=== PATIENT | female | born 1960 | race Caucasian/White ===

== ENCOUNTER 2016-06-05 19:39 | Emergency (ER) | payer OTHER, BC ==
[2016-06-05 19:53] VITALS: BP 149/81
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
[2016-06-05] MEDS ORDERED: HYDROCODONE/ACETAMINOPHEN 5-325 MG TABLET PO ONE (20:45)
[2016-06-05] MEDS ORDERED: IBUPROFEN 600 MG TABLET PO ONE (20:45)
== END 2016-06-05 21:06 | disposition home or self-care (01) ==
LOC: ER 19:39
DX: M54.5 Low back pain (principal); M54.2 Cervicalgia; E78.00 Pure hypercholesterolemia, unspecified; V89.2XXA Person injured in unspecified motor-vehicle accident, traffic, initial encounter; Z88.6 Allergy status to analgesic agent; Z88.0 Allergy status to penicillin; Z90.710 Acquired absence of both cervix and uterus
CPT/HCPCS: 72110; 99283

== ENCOUNTER 2016-10-05 04:54 | Emergency (ER) | payer BC, OTHER ==
--- NOTE | 2016-10-05 05:30 | ER Document Report ---
ED Hip Pain/Injury - General Chief Complaint: Hip Pain Stated Complaint: HIP PAIN Time Seen by Provider: 10/05/16 05:19 Mode of Arrival: Ambulatory Information source: Patient Notes: Pt is a 56 year old female who presents to the ER today for right hip pain that began 4 days ago suddenly. She denies injury, radiation down leg, numbness or tingling. She states the pain is sharp in nature and constant, worse with movement and laying on. TRAVEL OUTSIDE OF THE [place] IN LAST 30 DAYS: No - Related Data Allergies/Adverse Reactions: codeine [Codeine] Allergy (Intermediate, Verified 03/18/15 14:31) dizzy ampicillin [Ampicillin] Allergy (Unknown, Verified 03/18/15 14:31) rash morphine [Morphine] Allergy (Unknown, Verified 03/18/15 14:31) Hives Past Medical History - General Information source: Patient - Social History Smoking Status: Unknown if Ever Smoked Family History: Arthritis, CAD, CVA, DM, Hyperlipidemia, Hypertension, Malignancy Patient has suicidal ideation: No Patient has homicidal ideation: No - Past Medical History Cardiac Medical History: Reports: Hx Hypercholesterolemia Denies: Hx Coronary Artery Disease, Hx Heart Attack, Hx Hypertension Pulmonary Medical History: Reports: Hx Asthma - rare inhaler, Hx Bronchitis - yearly Denies: Hx COPD, Hx Pneumonia Neurological Medical History: Reports: Hx Migraine. Denies: Hx Cerebrovascular Accident, Hx Seizures Endocrine Medical History: Denies: Hx Diabetes Mellitus Type 1, Hx Diabetes Mellitus Type 2 Renal/ Medical History: Denies: Hx Peritoneal Dialysis GI Medical History: Reports: Hx Diverticulitis Musculoskeltal Medical History: Denies Hx Arthritis, Reports Hx Musculoskeletal Deformity, Reports Hx Musculoskeletal Trauma Traumatic Medical History: Reports: Hx Fractures Past Surgical History: Reports: Hx Abdominal Surgery - colon resection, Hx Adenoidectomy, Hx Hysterectomy, Hx Orthopedic Surgery - back surgery hand surgery, Hx Tonsillectomy, Hx Tubal Ligation - Immunizations Hx Diphtheria, Pertussis, Tetanus Vaccination: Yes Hx Pneumococcal Vaccination: 01/21/15 Review of Systems - Review of Systems Constitutional: No symptoms reported EENT: No symptoms reported Cardiovascular: No symptoms reported Respiratory: No symptoms reported Gastrointestinal: No symptoms reported Genitourinary: No symptoms reported Female Genitourinary: No symptoms reported Musculoskeletal: See HPI Skin: No symptoms reported Hematologic/Lymphatic: No symptoms reported Neurological/Psychological: No symptoms reported Physical Exam - Vital signs Vitals: Temp Pulse Resp BP Pulse Ox 97.6 F 79 18 133/74 H 95 10/05/16 04:56 10/05/16 04:56 10/05/16 04:56 10/05/16 04:56 10/05/16 04:56 - Notes Notes: PHYSICAL EXAMINATION: GENERAL: Obviously uncomfortable, laying on left side, but in no acute distress. HEAD: Atraumatic, normocephalic. EYES: Pupils equal round and reactive to light, extraocular movements intact, sclera anicteric, conjunctiva are normal. NECK: Normal range of motion, supple without lymphadenopathy LUNGS: CTAB and equal. No wheezes rales or rhonchi. HEART: Regular rate and rhythm without murmurs BACK: right SI joint tenderness, no vertebral tenderness, decreased ROM secondary to pain GI/: no CVA tenderness EXTREMITIES: Normal range of motion, no pitting edema. No cyanosis. NEUROLOGICAL: Cranial nerves grossly intact. Normal sensory/motor exams. PSYCH: Normal mood, normal affect. SKIN: Warm, Dry, normal turgor, no rashes or lesions noted Course - Re-evaluation Re-evalutation: 10/05/16 06:17 X-ray of the head negative for any acute pathology. - Vital Signs Vital signs: Temp Pulse Resp BP Pulse Ox 97.6 F 79 18 133/74 H 95 10/05/16 04:56 10/05/16 04:56 10/05/16 04:56 10/05/16 04:56 10/05/16 04:56 Discharge - Discharge Clinical Impression: Right hip pain Condition: Stable Disposition: HOME, SELF-CARE Additional Instructions: Return immediately for any new or worsening symptoms. Follow up with primary care provider, call tomorrow to make followup appointment. Prescriptions: Ketorolac Tromethamine [Toradol 10 mg Tablet] 10 mg PO Q6HP PRN #30 tablet PRN Reason: Cyclobenzaprine HCl [Flexeril 10 mg Tablet] 10 mg PO TIDP PRN #15 tab PRN Reason: Prednisone [Deltasone 20 mg Tablet] 3 tab PO DAILY 5 Days Forms: Return to Work Referrals: EVAN HERNANDEZ MD [Primary Care Provider] - Follow up as needed
[2016-10-05] MEDS ORDERED: CYCLOBENZAPRINE HCL 10 MG TABLET PO ONE (06:24)
[2016-10-05] MEDS ORDERED: PREDNISONE 20 MG TABLET PO ONE (06:24)
[2016-10-05] MEDS ORDERED: KETOROLAC TROMETHAMINE 60 MG/2 ML SDV IM ONE (06:24)
[2016-10-05 06:45] VITALS: BP 118/56
== END 2016-10-05 06:45 | disposition home or self-care (01) ==
LOC: ER 04:54
DX: M25.551 Pain in right hip (principal)
CPT/HCPCS: 99283; 73502; J1885; J7512

== ENCOUNTER → 2016-10-07 | Outpatient (CLI) | payer BC | LOC: RAD 10:12 | PROVIDERS: ATTEND Family Medicine | DX: M85.9 Disorder of bone density and structure, unspecified (principal); M16.0 Bilateral primary osteoarthritis of hip; M47.9 Spondylosis, unspecified | CPT/HCPCS: 82565; 72197; A9576 ==

== ENCOUNTER → 2016-11-29 | Outpatient (CLI) | payer BC ==
--- NOTE | 2016-11-29 15:34 | RADIOLOGY REPORT (SQ) ---
EXAM DESCRIPTION: CHEST PA/LAT COMPLETED DATE/TIME: 11/29/2016 3:20 pm REASON FOR STUDY: SHORTNESS OF BREATH, PAIN IN LEFT KNEE COMPARISON: 02/11/2015 EXAM PARAMETERS: NUMBER OF VIEWS: two views TECHNIQUE: Digital Frontal and Lateral radiographic views of the chest acquired. RADIATION DOSE: NA LIMITATIONS: none FINDINGS: LUNGS AND PLEURA: No opacities, masses or pneumothorax. No pleural effusion. MEDIASTINUM AND HILAR STRUCTURES: No masses or contour abnormalities. HEART AND VASCULAR STRUCTURES: Heart normal size. No evidence for failure. BONES: No acute findings. HARDWARE: None in the chest. OTHER: No other significant finding. IMPRESSION: NO SIGNIFICANT RADIOGRAPHIC FINDING IN THE CHEST. TECHNICAL DOCUMENTATION: JOB ID: [id number] [employer]- All Rights Reserved
--- NOTE | 2016-11-29 15:52 | RADIOLOGY REPORT (SQ) ---
EXAM DESCRIPTION: KNEE LEFT 4 VIEW COMPLETED DATE/TIME: 11/29/2016 3:20 pm REASON FOR STUDY: SHORTNESS OF BREATH, PAIN IN LEFT KNEE R06.02 SHORTNESS OF BREATH M25.562 PAIN I N LEFT KNEE COMPARISON: None. NUMBER OF VIEWS: Four views. TECHNIQUE: AP, lateral, and both oblique radiographic images acquired of the left knee. LIMITATIONS: None. FINDINGS: MINERALIZATION: Normal. BONES: No acute fracture or dislocation. No worrisome bone lesions. Medial compartment osteophytes. JOINT: No effusion. Medial compartment joint space narrowing. OTHER: No other significant finding. IMPRESSION: Medial compartment osteoarthritis. TECHNICAL DOCUMENTATION: JOB ID: [id number] [employer]- All Rights Reserved
== END ==
LOC: RAD 15:03
PROVIDERS: ATTEND Family Medicine
DX: R06.02 Shortness of breath (principal); M25.562 Pain in left knee; M17.12 Unilateral primary osteoarthritis, left knee
CPT/HCPCS: 71020

== ENCOUNTER → 2018-08-01 | Outpatient (CLI) | payer OTHER ==
--- NOTE | 2018-08-01 11:50 | RADIOLOGY REPORT (SQ) ---
EXAM DESCRIPTION: MRI LUMBAR SPINE WITHOUT COMPLETED DATE/TIME: 08/01/2018 11:27 am REASON FOR STUDY: LOW BACK PAIN (M54.5) M54.5 LOW BACK PAIN COMPARISON: Lumbar spine films 06/05/2016 TECHNIQUE: Sagittal and Axial imaging includes T1, T2, STIR and gradient echo sequences. Coronal T2/ HASTE imaging. LIMITATIONS: None. FINDINGS: VISUALIZED UPPER ABDOMEN: Limited evaluation. No acute or suspicious findings suggested. SEGMENTATION: No transitional anatomy. The lowest well-developed disc space is labeled L5-S1. ALIGNMENT: Grade 1 anterolisthesis of L3 over L4 is present related to bulky facet arthropathy VERTEBRAE: Intact. BONE MARROW: Fatty reactive vertebral body endplate changes from L3 through S1 DISC SIGNAL: Diffuse decreased T2 weighted intervertebral disc signal. Significant disc space loss o f height from L3-4 through L5-S1 POSTERIOR ELEMENTS: Generally intact. No pars defect evident. HARDWARE: None in the spine. CORD AND CONUS: Normal in size and signal intensity. Conus at the T12-L1 level. SOFT TISSUES: No aortic aneurysm seen. No bulky retroperitoneal adenopathy or mass. No paraspinal mas s or fluid. T11-12: No central or foraminal stenosis. Mild bilateral facet arthropathy T12-L1: Minimal posterior disc bulging, mild bilateral facet hypertrophy. No central stenosis or le ft foraminal narrowing. Mild right foraminal narrowing without exit T12 nerve root impingement. L1-L2: Mild diffuse posterior disc bulging right greater than left and moderate bilateral facet hyper trophy are present. No central stenosis. Mild inferior right foraminal narrowing. No left foramina l stenosis. L2-L3: A moderate-sized disc herniation is present superior migrated extruded fragment. This finding along with moderate bilateral facet and ligament hypertrophy causes high-grade central canal stenosi s, with effacement of the CSF around the lumbar nerve roots. This is best shown on axial T2 image 11 , and sagittal T2 image 8. Elsewhere at L2-3, there is moderate bilateral foraminal narrowing right greater than left without ex iting L2 nerve root impingement L3-L4: Mild grade 1 anterolisthesis of L3 over L4, bulky bilateral facet and ligament hypertrophy, br oad diffuse uncovered disc bulge with a small left paracentral protrusion causes moderate central can al stenosis with partial effacement of the CSF around the lumbar nerve roots, best shown on axial john ge 17 and sagittal image 9. Mild right, moderate left foraminal narrowing without exit L3 nerve root impingement L4-L5: Mild central canal stenosis with flattening of the thecal sac into a triangular shape results from broad diffuse posterior disc bulging and moderate bilateral facet and ligament hypertrophy. The re is mild bilateral foraminal narrowing without exiting L4 nerve root impingement L5-S1: Mild bilateral facet arthropathy, broad diffuse posterior disc bulging with an old calcified r ight paracentral disc protrusion. No significant central canal narrowing. Moderate right, mild left foraminal narrowing without exit L5 nerve root impingement SACRUM: Visualized upper sacrum intact. OTHER: No other significant findings. IMPRESSION: Significant central canal stenosis at L2-3 and L3-4 TECHNICAL DOCUMENTATION: JOB ID: [id number] [employer]- All Rights Reserved Reading location - IP/workstation name: [email or web address]
== END ==
LOC: RAD 10:19
PROVIDERS: ATTEND Family Medicine
DX: M54.5 Low back pain (principal); M48.061 Spinal stenosis, lumbar region without neurogenic claudication
CPT/HCPCS: 72148

== ENCOUNTER 2019-01-11 09:48 | Emergency (ER) | payer OTHER ==
[2019-01-11] MEDS ORDERED: IPRATROPIUM/ALBUTEROL 0.5-2.5 MG/3 ML AMPUL NEB ONE (10:06)
[2019-01-11] MEDS ORDERED: ALBUTEROL SULFATE 0.083% NEB 2.5 MG/3 ML AMPUL NEB ONE (10:06)
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
[2019-01-11 11:00] LABS: ABSOLUTE BASOPHILS # (AUTO) 0.1 10^3/uL (0.0-0.2); ABSOLUTE EOSINOPHILS # (AUTO) 0.1 10^3/uL (0.0-0.6); ABSOLUTE LYMPHOCYTES (AUTO) 1.8 10^3/uL (0.5-4.7); ABSOLUTE MONOCYTES (AUTO) 0.5 10^3/uL (0.1-1.4); ABSOLUTE NEUT (AUTO) 5.5 10^3/uL (1.7-8.2); BASOPHILS % (AUTO) 0.7 % (0-2); EOSINOPHILS % (AUTO) 1.2 % (0-6); HEMATOCRIT 40.4 % (36.0-47.0); HEMOGLOBIN 13.5 g/dL (12.0-15.5); LYMPHOCYTES % (AUTO) 22.6 % (13-45); MEAN CORPUSCULAR HEMOGLOBIN 27.8 pg (27.0-33.4); MEAN CORPUSCULAR HGB CONC 33.4 g/dL (32.0-36.0); MEAN CORPUSCULAR VOLUME 83 fl (80-97); MONOCYTES % (AUTO) 6.5 % (3-13); PLATELET COUNT 275 10^3/uL (150-450); RED BLOOD COUNT 4.85 10^6/uL (3.72-5.28); RED CELL DISTRIBUTION WIDTH 13.8 % (11.5-14.0); TOTAL CELLS COUNTED % (AUTO) 100 %
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
[2019-01-11 11:18] LABS: ALBUMIN 4.4 g/dL (3.5-5.0); ALKALINE PHOSPHATASE 97 U/L (38-126); ANION GAP 8 (5-19); ASPARTATE AMINO TRANSFERASE 26 U/L (14-36); BILIRUBIN,DIRECT 0.2 mg/dL (0.0-0.4); BILIRUBIN,TOTAL 0.3 mg/dL (0.2-1.3); BLOOD UREA NITROGEN 17 mg/dL (7-20); CALCIUM 10.6 mg/dL (8.4-10.2); CARBON DIOXIDE 30 mmol/L (22-30); CHLORIDE 101 mmol/L (98-107); GLUCOSE 143 mg/dL (75-110); POTASSIUM 4.6 mmol/L (3.6-5.0); TOTAL PROTEIN 7.2 g/dL (6.3-8.2)
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
--- NOTE | 2019-01-11 12:16 | RADIOLOGY REPORT (SQ) ---
EXAM DESCRIPTION: CT CHEST WITH COMPLETED DATE/TIME: 01/11/2019 12:04 pm REASON FOR STUDY: Difficulty breathing upper mid anterior chest/neck COMPARISON: None. TECHNIQUE: CT scan of the chest performed using helical scanning technique with dynamic intravenous contrast injection. Images reviewed with lung, soft tissue and bone windows. Reconstructed coronal and sagittal MPR and MIP images reviewed. All images stored on PACS. All CT scanners at this facility use dose modulation, iterative reconstruction, and/or weight based d osing when appropriate to reduce radiation dose to as low as reasonably achievable (ALARA). [facility]: Dose Right [facility]: CareDose [facility]: Dose Right [facility]: Teradose 4D [facility]: [place] CONTRAST TYPE AND DOSE: contrast/concentration: Isovue 350.00 mg/ml; Total Contrast Delivered: 80.0 ml; Total Saline Delivered: 55.0 ml RENAL FUNCTION: GFR > 60. RADIATION DOSE: CT Rad equipment meets quality standard of care and radiation dose reduction techniq ues were employed. CTDIvol: 9.2 mGy. DLP: 371 mGy-cm. . LIMITATIONS: None. FINDINGS: LUNGS AND PLEURA: No opacities, nodules, masses. No pneumothorax. No effusions. HILAR AND MEDIASTINAL STRUCTURES: No identified masses or abnormal nodes. HEART AND VASCULAR STRUCTURES: No aneurysm or dissection. No central pulmonary emboli. No pericardi al effusion. HARDWARE: None in the chest. UPPER ABDOMEN: No significant findings. Limited exam. THYROID AND OTHER SOFT TISSUES: No masses. No adenopathy. BONES: No significant finding. OTHER: No other significant finding. IMPRESSION: NORMAL CT OF THE CHEST WITH IV CONTRAST. TECHNICAL DOCUMENTATION: JOB ID: [id number] Quality ID # [id number]: Final reports with documentation of one or more dose reduction techniques (e.g., Au tomated exposure control, adjustment of the mA and/or kV according to patient size, use of iterative reconstruction technique) 2010 [employer]- All Rights Reserved Reading location - IP/workstation name: [email or web address]
[2019-01-11 14:06] VITALS: BP 136/79
== END 2019-01-11 14:09 | disposition home or self-care (01) ==
LOC: ER 09:48
DX: R06.00 Dyspnea, unspecified (principal); Z88.6 Allergy status to analgesic agent; Y99.0 Civilian activity done for income or pay; E78.00 Pure hypercholesterolemia, unspecified; Z90.710 Acquired absence of both cervix and uterus
CPT/HCPCS: 94640; 99285; 36415; 85025; 80053; 71046; 71260; J7620

== ENCOUNTER 2019-01-18 22:27 | Emergency (ER) | payer OTHER ==
--- NOTE | 2019-01-18 22:48 | ER Document Report ---
ED General - General Stated Complaint: TROUBLE BREATHING Time Seen by Provider: 01/18/19 22:47 Primary Care Provider: DEBBY CALVERT MD [Primary Care Provider] - Follow up as needed DEISY RODRIGUEZ MD [ACTIVE STAFF] - Follow up in 3-5 days (ENT ) Notes: Patient is a 58-year-old female with history of asthma that presents to the emergency department for chief complaint of cough and shortness of breath. 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 She states she has been trying inhalers, was seen in the ER twice since this occurrence, and has been on steroid courses, without much improvement of her symptoms. She states that her throat will feel tight at times, and she is been having a dry nonproductive cough and wheezing. She was given an albuterol and Atrovent breathing treatment by EMS, without much improvement of her symptoms. She denies any significant chest pain at this time, denies any fevers, chills, night sweats, nausea, vomiting or abdominal pain. Her main complaint is she feels like her throat closes at times. No new medications other than what is mentioned, no new allergen exposures. She states the sym ptoms have essentially been going on since December 25 as noted. Past Medical History: Asthma, hyperlipidemia Past Surgical History: Back surgery, colon surgery Social History: Denies tobacco, alcohol or drug use. Family History: Reviewed and noncontributory for presenting illness Allergies: Reviewed, see documented allergy list. REVIEW OF SYSTEMS: Other than noted above, the 12 point review of systems was reviewed with the patient and were negative, all pertinent findings are included in the HPI. PHYSICAL EXAMINATION: Vital signs reviewed, nursing noted reviewed. GENERAL: Patient has a dry cough on exam, but no acute respiratory distress HEAD: Atraumatic, normocephalic. EYES: Eyes appear normal, extraocular movements intact, sclera anicteric, conjunctiva are normal. ENT: nares patent, oropharynx clear without exudates. Moist mucous membranes. No stridor noted on exam. NECK: Normal range of motion, supple without lymphadenopathy LUNGS: Diffuse wheezing noted on exam, but no acute distress, no increased work of breathing. HEART: Heart rate mildly tachycardic, regular rhythm, no audible murmur. ABDOMEN: Soft, nontender, normoactive bowel sounds. No rebound, guarding, or rigidity. No masses appreciated. EXTREMITIES: Nontender, good range of motion, no pitting or edema. NEUROLOGICAL: No focal neurological deficits. Moves all extremities spontaneously Motor and sensory grossly intact on exam. PSYCH: Normal mood, normal affect. SKIN: Warm, Dry, normal turgor, no rashes or lesions noted on exposed skin TRAVEL OUTSIDE OF THE [place] IN LAST 30 DAYS: No - Related Data Allergies/Adverse Reactions: codeine [Codeine] Allergy (Intermediate, Verified 01/11/19 09:51) dizzy ampicillin [Ampicillin] Allergy (Unknown, Verified 01/11/19 09:51) rash morphine [Morphine] Allergy (Unknown, Verified 01/11/19 09:51) Hives Past Medical History - Social History Smoking Status: Never Smoker Family History: Arthritis, CAD, CVA, DM, Hyperlipidemia, Hypertension, Malignancy - Past Medical History Cardiac Medical History: Reports: Hx Hypercholesterolemia Denies: Hx Coronary Artery Disease, Hx Heart Attack, Hx Hypertension Pulmonary Medical History: Reports: Hx Asthma - rare inhaler, Hx Bronchitis - yearly Denies: Hx COPD, Hx Pneumonia Neurological Medical History: Reports: Hx Migraine. Denies: Hx Cerebrovascular Accident, Hx Seizures Endocrine Medical History: Denies: Hx Diabetes Mellitus Type 1, Hx Diabetes Mellitus Type 2 Renal/ Medical History: Denies: Hx Peritoneal Dialysis GI Medical History: Reports: Hx Diverticulitis Musculoskeletal Medical History: Denies Hx Arthritis, Reports Hx Musculoskeletal Deformity, Reports Hx Musculoskeletal Trauma Traumatic Medical History: Reports: Hx Fractures Past Surgical History: Reports: Hx Abdominal Surgery - colon resection, Hx Adenoidectomy, Hx Hysterectomy, Hx Orthopedic Surgery - back surgery hand surgery, Hx Tonsillectomy, Hx Tubal Ligation - Immunizations Hx Diphtheria, Pertussis, Tetanus Vaccination: Yes Hx Pneumococcal Vaccination: 01/21/15 Physical Exam - Vital signs Vitals: Temp Pulse Ox 98.0 F 98 01/18/19 22:27 01/18/19 22:27 Course - Re-evaluation Re-evalutation: Patient seen and examined vital signs reviewed. Laboratory data and/or imaging were ordered as appropriate for the patient's presenting symptoms and complaint, with consideration of any critical or life threatening conditions that may be associated with their obtained history and exam as noted above. Patient was treated with budesonide, IV magnesium, and racemic epinephrine and IV Decadron Results were reviewed when available and demonstrated negative chest x-ray, blood work was essentially unremarkable The patient was re-evaluated and was improved, no further wheezing noted on exam, no respiratory distress, no hypoxia Evaluation was most consistent with acute bronchospasm, patient may be having laryngospasm as well, giving her the sensation of feeling that her throat is closing, but her clinical exam did not have any stridor, she did not have any wheezing after treatment with bronchodilators by EMS, and with inhaled budesonide, and IV magnesium. Patient does not have any symptoms chronically fo r nearly a month now, I did advise her to follow-up with ENT, as well as pulmonology which she has an appointment with pulmonology coming up in a few weeks. Will prescribe her a prescription for Decadron, as a taper since she is been having multiple steroid courses recently patient was agreeable to trial this and see if it improves her symptoms. Results were discussed with the patient at this point, after careful consideration I feel that that patient can be discharged from the emergency department, the patient was educated treatments and reasons to return to the emergency department based on their presumed diagnosis as noted above, they were advised to followup with a primary care physician in 2-3 days. Patient was agreeable to plan of care. *Note is created using voice recognition software and may contain spelling, syntax or grammatical errors. Laboratory 01/18/19 01/18/19 01/18/19 22:40 22:40 22:40 WBC 10.4 RBC 4.60 Hgb 12.9 Hct 38.4 MCV 84 MCH 28.0 MCHC 33.5 RDW 14.0 Plt Count 285 Lymph % (Auto) 44.7 Gila % (Auto) 9.9 Eos % (Auto) 1.9 Baso % (Auto) 0.4 Absolute Neuts (auto) 4.5 Absolute Lymphs (auto) 4.7 Absolute Monos (auto) 1.0 Absolute Eos (auto) 0.2 Absolute Basos (auto) 0.0 Seg Neutrophils % 43.1 Sodium 137.4 Potassium 3.6 Chloride 102 Carbon Dioxide 27 Anion Gap 8 BUN 17 Creatinine 0.79 Est GFR ( Amer) > 60 Est GFR (MDRD) Non-Af > 60 Glucose 207 H Calcium 9.5 Total Bilirubin 0.3 Direct Bilirubin 0.1 Neonat Total Bilirubin Not Reportable Neonat Direct Bilirubin Not Reportable Neonat Indirect Bili Not Reportable AST 22 ALT 24 Alkaline Phosphatase 104 Creatine Kinase 81 CK-MB (CK-2) 0.85 Troponin I < 0.012 NT-Pro-B Natriuret Pep 16 Total Protein 6.9 Albumin 4.1 Chest X-Ray 01/18/19 22:35 IMPRESSION: No acute disease. copyright 2010 [employer]- All Rights Reserved - Vital Signs Vital signs: Temp Pulse Resp BP Pulse Ox 98.2 F 16 122/79 96 01/19/19 01:06 01/19/19 01:01 01/19/19 01:00 01/19/19 01:01 - Laboratory Result Diagrams: 01/18/19 22:40 01/18/19 22:40 Laboratory results interpreted by me: 01/18/19 22:40 Glucose 207 H - EKG Interpretation by Me Additional EKG results interpreted by me: EKG demonstrates sinus tachycardia with a ventricular rate of 103 bpm, normal axis, normal intervals, no evidence of acute ischemia in this EKG, compared to prior EKG from 12/25/2018, without significant change. Discharge - Discharge Clinical Impression: Bronchospasm, acute Condition: Stable Disposition: HOME, SELF-CARE Instructions: Bronchospasm (OM) Additional Instructions: Please take the prescribed Decadron as directed, continue using your albuterol inhaler, 2 puffs at least 3 times daily, and the Pulmicort inhaler, 2 puffs twice daily, and follow-up with ear nose and throat, as well as pulmonology. Call for an appointment. If your symptoms are worsening or not improving, do not hesitate to return to the emergency department to be reevaluated. Prescriptions: Dexamethasone [Decadron 4 Mg Tablet] 4 mg PO ASDIR #30 tablet Forms: Return to Work Referrals: DEBBY CALVERT MD [Primary Care Provider] - Follow up as needed DEISY RODRIGUEZ MD [ACTIVE STAFF] - Follow up in 3-5 days (ENT )
[2019-01-18 22:59] LABS: ABSOLUTE EOSINOPHILS # (AUTO) 0.2 10^3/uL (0.0-0.6); ABSOLUTE LYMPHOCYTES (AUTO) 4.7 10^3/uL (0.5-4.7); ABSOLUTE NEUT (AUTO) 4.5 10^3/uL (1.7-8.2); BASOPHILS % (AUTO) 0.4 % (0-2); EOSINOPHILS % (AUTO) 1.9 % (0-6); HEMATOCRIT 38.4 % (36.0-47.0); HEMOGLOBIN 12.9 g/dL (12.0-15.5); LYMPHOCYTES % (AUTO) 44.7 % (13-45); MEAN CORPUSCULAR HGB CONC 33.5 g/dL (32.0-36.0); MEAN CORPUSCULAR VOLUME 84 fl (80-97); MONOCYTES % (AUTO) 9.9 % (3-13); PLATELET COUNT 285 10^3/uL (150-450); SEGMENTED NEUTROPHILS % (AUTO) 43.1 % (42-78); TOTAL CELLS COUNTED % (AUTO) 100 %; WHITE BLOOD COUNT 10.4 10^3/uL (4.0-10.5)
[2019-01-18] MEDS ORDERED: BUDESONIDE NEB 0.5 MG/2 ML AMPUL NEB ONE (23:04)
[2019-01-18] MEDS ORDERED: DEXAMETHASONE SOD PHOS INJ 10 MG/1 ML VIAL IV ONE (23:04)
[2019-01-18] MEDS ORDERED: RACEPINEPHRINE HCL 2.25% NEB 0.5 ML AMPUL NEB ONE (23:05)
[2019-01-18] MEDS ORDERED: MAGNESIUM SULFATE/D5W 1 GM/100 ML RTUPB IV ONE (23:06)
[2019-01-18 23:16] LABS: ALBUMIN 4.1 g/dL (3.5-5.0); ALKALINE PHOSPHATASE 104 U/L (38-126); ANION GAP 8 (5-19); ASPARTATE AMINO TRANSFERASE 22 U/L (14-36); BILIRUBIN,DIRECT 0.1 mg/dL (0.0-0.4); BILIRUBIN,TOTAL 0.3 mg/dL (0.2-1.3); BLOOD UREA NITROGEN 17 mg/dL (7-20); CALCIUM 9.5 mg/dL (8.4-10.2); CARBON DIOXIDE 27 mmol/L (22-30); CHLORIDE 102 mmol/L (98-107); CREATINE KINASE 81 U/L (30-135); GLUCOSE 207 mg/dL (75-110); POTASSIUM 3.6 mmol/L (3.6-5.0); TOTAL PROTEIN 6.9 g/dL (6.3-8.2)
--- NOTE | 2019-01-18 23:31 | RADIOLOGY REPORT (SQ) ---
EXAM DESCRIPTION: XR CHEST 1 VIEW COMPLETED DATE/TME: 01/18/2019 22:35 CLINICAL HISTORY: 58 years, Female, respiratory distress COMPARISON: Multiple priors, most recent from 01/11/2019 NUMBER OF VIEWS: One TECHNIQUE: Single frontal view of the chest was obtained portably. LIMITATIONS: None. FINDINGS: Cardiac and mediastinal contours are normal in appearance. Lungs are clear. No pleural effusion or pneumothorax. IMPRESSION: No acute disease. copyright 2010 [employer]- All Rights Reserved
--- NOTE | 2019-01-18 23:35 | EKG REPORT ---
SEVERITY:- BORDERLINE ECG - SINUS TACHYCARDIA NONSPECIFIC INFERIOR ST-T CHANGES : Confirmed by: Bony Rincon MD 18-Jan-2019 23:34:57
[2019-01-18 23:37] LABS: CREATINE KINASE MB 0.85 ng/mL (<4.55); NT PRO BNP 16 pg/mL (5-900)
[2019-01-18 23:42] LABS: TROPONIN I < 0.012 ng/mL
[2019-01-19 01:38] VITALS: BP 122/79
== END 2019-01-19 01:10 | disposition home or self-care (01) ==
LOC: ER 22:27
DX: J98.01 Acute bronchospasm (principal); R06.00 Dyspnea, unspecified; R05 Cough; X08.8XXA Exposure to other specified smoke, fire and flames, initial encounter; Y99.0 Civilian activity done for income or pay; E78.00 Pure hypercholesterolemia, unspecified; Z88.6 Allergy status to analgesic agent; Z88.0 Allergy status to penicillin; Z90.710 Acquired absence of both cervix and uterus
CPT/HCPCS: 93005; 94640; 99285; 96375; 96365; 36415; 82553; 82550; 85025; 80053; 84484; 83880; 71045; 93010; J3475; J1100; J3490

== ENCOUNTER 2019-05-16 17:48 | Emergency (ER) | payer OTHER ==
[2019-05-16] MEDS ORDERED: METHYLPREDNISOLONE INJ 125 MG/2 ML SDV IV ONE (18:04)
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
[2019-05-16 18:35] LABS: ABSOLUTE EOSINOPHILS # (AUTO) 0.1 10^3/uL (0.0-0.6); ABSOLUTE LYMPHOCYTES (AUTO) 2.7 10^3/uL (0.5-4.7); ABSOLUTE MONOCYTES (AUTO) 0.6 10^3/uL (0.1-1.4); ABSOLUTE NEUT (AUTO) 3.7 10^3/uL (1.7-8.2); BASOPHILS % (AUTO) 0.6 % (0-2); EOSINOPHILS % (AUTO) 1.1 % (0-6); HEMATOCRIT 39.3 % (36.0-47.0); HEMOGLOBIN 13.4 g/dL (12.0-15.5); MEAN CORPUSCULAR HEMOGLOBIN 27.8 pg (27.0-33.4); MEAN CORPUSCULAR HGB CONC 34.1 g/dL (32.0-36.0); MEAN CORPUSCULAR VOLUME 82 fl (80-97); MONOCYTES % (AUTO) 8.1 % (3-13); PLATELET COUNT 293 10^3/uL (150-450); RED BLOOD COUNT 4.81 10^6/uL (3.72-5.28); RED CELL DISTRIBUTION WIDTH 14.2 % (11.5-14.0); SEGMENTED NEUTROPHILS % (AUTO) 52.2 % (42-78); TOTAL CELLS COUNTED % (AUTO) 100 %
[2019-05-16 18:47] LABS: ALBUMIN 4.2 g/dL (3.5-5.0); ALKALINE PHOSPHATASE 97 U/L (38-126); ANION GAP 13 (5-19); ASPARTATE AMINO TRANSFERASE 43 U/L (14-36); BILIRUBIN,DIRECT 0.1 mg/dL (0.0-0.4); BILIRUBIN,TOTAL 0.4 mg/dL (0.2-1.3); BLOOD UREA NITROGEN 19 mg/dL (7-20); CALCIUM 9.9 mg/dL (8.4-10.2); CARBON DIOXIDE 27 mmol/L (22-30); CHLORIDE 101 mmol/L (98-107); GLUCOSE 171 mg/dL (75-110); POTASSIUM 3.9 mmol/L (3.6-5.0); TOTAL PROTEIN 7.3 g/dL (6.3-8.2)
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
--- NOTE | 2019-05-16 19:32 | RADIOLOGY REPORT (SQ) ---
EXAM DESCRIPTION: CT CHEST WITHOUT COMPLETED DATE/TIME: 05/16/2019 7:17 pm REASON FOR STUDY: cough, feels like throat swelling COMPARISON: None. TECHNIQUE: CT scan performed of the chest without intravenous contrast. Images reviewed with lung, soft tissue and bone windows. Reconstructed coronal and sagittal MPR images reviewed. All images st ored on PACS. All CT scanners at this facility use dose modulation, iterative reconstruction, and/or weight based d osing when appropriate to reduce radiation dose to as low as reasonably achievable (ALARA). [facility]: Dose Right [facility]: CareDose [facility]: Dose Right [facility]: Teradose 4D [facility]: Smart Extole RADIATION DOSE: CT Rad equipment meets quality standard of care and radiation dose reduction techniq ues were employed. CTDIvol: 14.4 mGy. DLP: 585 mGy-cm. mGy. LIMITATIONS: No technical limitations. FINDINGS: LUNGS AND PLEURA: No masses, infiltrates, or pneumothorax. No pleural effusions or pleura l calcifications. HILAR AND MEDIASTINAL STRUCTURES: No identified masses or abnormal nodes. No obvious aneurysm. HEART AND VASCULAR STRUCTURES: No aneurysm. No pericardial effusion. UPPER ABDOMEN: Possible hepatomegaly. Hepatic hypoattenuation. THYROID AND OTHER SOFT TISSUES: No masses. No adenopathy. BONES: No significant finding. HARDWARE: None in the chest. OTHER: No other significant findings. IMPRESSION: 1. No acute findings in the thorax. 2. Possible hepatomegaly. Hepatic steatosis. TECHNICAL DOCUMENTATION: JOB ID: [id number] Quality ID # [id number]: Final reports with documentation of one or more dose reduction techniques (e.g., Au tomated exposure control, adjustment of the mA and/or kV according to patient size, use of iterative reconstruction technique) 2010 [employer]- All Rights Reserved Reading location - IP/workstation name: [email or web address]
--- NOTE | 2019-05-16 19:36 | RADIOLOGY REPORT (SQ) ---
EXAM DESCRIPTION: CT SOFT TISSUE NECK WITH COMPLETED DATE/TIME: 05/16/2019 7:17 pm REASON FOR STUDY: cough, feels like throat swelling COMPARISON: None. TECHNIQUE: Post IV contrasted scanning from skull base through lung apices with review of bone, soft tissue and lung windows. Reconstructed coronal and sagittal MPR images reviewed. All images stored on PACS. All CT scanners at this facility use dose modulation, iterative reconstruction, and/or weight based d osing when appropriate to reduce radiation dose to as low as reasonably achievable (ALARA). [facility]: Dose Right [facility]: CareDose [facility]: Dose Right [facility]: Teradose 4D [facility]: [employer] CONTRAST TYPE AND DOSE: contrast/concentration: Isovue 350.00 mg/ml; Total Contrast Delivered: 75.0 ml; Total Saline Delivered: 53.0 ml RENAL FUNCTION: BUN 19 creatinine 0.69 RADIATION DOSE: CT Rad equipment meets quality standard of care and radiation dose reduction techniq ues were employed. CTDIvol: 16.2 mGy. DLP: 540 mGy-cm. . LIMITATIONS: None. FINDINGS: SKULL BASE: Intact. MAJOR SALIVARY GLANDS: No solid or cystic masses. No inflammatory changes. LYMPHADENOPATHY: No true adenopathy. There are numerous small nonspecific cervical nodes. MUCOSAL MASSES OR ASYMMETRY: No mucosal masses or asymmetry. LARYNX/CORDS: No abnormal findings. VASCULAR STRUCTURES: The major vessels are patent. LUNG APICES: Clear. BONES: Intact. Prior ACDF from C4 to C7. THYROID: Normal size. No masses. PARANASAL SINUSES: Clear. OTHER: No other significant finding. IMPRESSION: No acute abnormality in the neck. Findings as described. TECHNICAL DOCUMENTATION: JOB ID: [id number] Quality ID # [id number]: Final reports with documentation of one or more dose reduction techniques (e.g., Au tomated exposure control, adjustment of the mA and/or kV according to patient size, use of iterative reconstruction technique) 2010 [employer]- All Rights Reserved Reading location - IP/workstation name: [email or web address]
[2019-05-16] MEDS ORDERED: RINGERS SOLUTION,LACTATED 1,000 ML IV ONE (20:28)
[2019-05-16] MEDS: IPRATROPIUM/ALBUTEROL 0.5-2.5 MG/3 ML AMPUL NEB PRN ×3 (20:49→21:36)
[2019-05-16] MEDS: MAGNESIUM SULFATE/D5W 1 GM/100 ML RTUPB IV SCH ×2 (20:49→21:00)
[2019-05-17 01:14] VITALS: BP 108/65
== END 2019-05-17 02:04 | disposition home or self-care (01) ==
LOC: ER 17:48
DX: R49.0 Dysphonia (principal); J45.909 Unspecified asthma, uncomplicated; R05 Cough; Z79.899 Other long term (current) drug therapy; Z88.6 Allergy status to analgesic agent; Z88.5 Allergy status to narcotic agent; Z88.0 Allergy status to penicillin
CPT/HCPCS: 94640 ×2; 99285; 96361; 96375; 96365; 36415; 85025; 80053; 70491; 71250; J2930; J3475; J7120; J7620

== ENCOUNTER 2019-08-19 16:29 | Emergency (ER) | payer OTHER ==
--- NOTE | 2019-08-19 16:41 | ER Document Report ---
ED Medical Screen (RME) - General Chief Complaint: Syncope Stated Complaint: POSSIBLE SYNCOPE Time Seen by Provider: 08/19/19 16:35 Primary Care Provider: DEBBY CALVERT MD [Primary Care Provider] - Follow up as needed TRAVEL OUTSIDE OF THE [place] IN LAST 30 DAYS: Yes - HPI Notes: 08/19/19 16:40 59-year-old female presents emergency room for evaluation of a syncopal event approximately 1 hour ago. Patient was sitting on the toilet trying to have a bowel movement when she started to feel hot all over and then she does not remember anything. When she came to she says she was soaked in sweat she states that there is a hole in the wall she is not sure if that is from her elbow or from her head. Patient denies being a diabetic no history of CVA or MIs she states this happened once before prior to needing to have a colectomy in 2009. Patient was brought by private vehicle to ER I have greeted and performed a rapid initial assessment of this patient. A comprehensive ED assessment and evaluation of the patient, analysis of test results and completion of the medical decision making process will be conducted by additional ED providers. PHYSICAL EXAMINATION: GENERAL: Well-appearing, well-nourished and in no acute distress. HEAD: Atraumatic, normocephalic. No evidence of any trauma or ecchymosis EYES: Pupils equal round extraocular movements intact, conjunctiva are normal. NECK: Normal range of motion CV: s1, s2 regular LUNGS: No respiratory distress - Related Data Allergies/Adverse Reactions: codeine [Codeine] Allergy (Intermediate, Verified 08/19/19 16:34) dizzy ampicillin [Ampicillin] Allergy (Unknown, Verified 08/19/19 16:34) rash morphine [Morphine] Allergy (Unknown, Verified 08/19/19 16:34) Hives Past Medical History - Past Medical History Cardiac Medical History: Reports: Hx Hypercholesterolemia Denies: Hx Coronary Artery Disease, Hx Heart Attack, Hx Hypertension Pulmonary Medical History: Reports: Hx Asthma - rare inhaler, Hx Bronchitis - yearly Denies: Hx COPD, Hx Pneumonia Neurological Medical History: Reports: Hx Migraine. Denies: Hx Cerebrovascular Accident, Hx Seizures Endocrine Medical History: Denies: Hx Diabetes Mellitus Type 1, Hx Diabetes Mellitus Type 2 Renal/ Medical History: Denies: Hx Peritoneal Dialysis GI Medical History: Reports: Hx Diverticulitis Musculoskeltal Medical History: Denies Hx Arthritis, Reports Hx Musculoskeletal Deformity, Reports Hx Musculoskeletal Trauma Traumatic Medical History: Reports: Hx Fractures Past Surgical History: Reports: Hx Abdominal Surgery - colon resection, Hx Adenoidectomy, Hx Hysterectomy, Hx Orthopedic Surgery - back surgery hand surgery, Hx Tonsillectomy, Hx Tubal Ligation - Immunizations Hx Diphtheria, Pertussis, Tetanus Vaccination: Yes Physical Exam - Vital signs Vitals: Temp Pulse Resp BP Pulse Ox 98.9 F 99 16 143/74 H 93 08/19/19 16:33 08/19/19 16:33 08/19/19 16:33 08/19/19 16:33 08/19/19 16:33 Course - Vital Signs Vital signs: Temp Pulse Resp BP Pulse Ox 98.9 F 99 16 143/74 H 93 08/19/19 16:33 08/19/19 16:33 08/19/19 16:33 08/19/19 16:33 08/19/19 16:33 Doctor's Discharge - Discharge Referrals: DEBBY CALVERT MD [Primary Care Provider] - Follow up as needed
[2019-08-19 17:54] LABS: ABSOLUTE EOSINOPHILS # (AUTO) 0.1 10^3/uL (0.0-0.6); ABSOLUTE MONOCYTES (AUTO) 0.6 10^3/uL (0.1-1.4); ABSOLUTE NEUT (AUTO) 4.3 10^3/uL (1.7-8.2); BASOPHILS % (AUTO) 0.5 % (0-2); EOSINOPHILS % (AUTO) 1.2 % (0-6); HEMATOCRIT 28.1 % (36.0-47.0); HEMOGLOBIN 9.5 g/dL (12.0-15.5); MEAN CORPUSCULAR HEMOGLOBIN 27.6 pg (27.0-33.4); MEAN CORPUSCULAR HGB CONC 33.9 g/dL (32.0-36.0); MEAN CORPUSCULAR VOLUME 82 fl (80-97); PLATELET COUNT 319 10^3/uL (150-450); RED BLOOD COUNT 3.45 10^6/uL (3.72-5.28); RED CELL DISTRIBUTION WIDTH 15.7 % (11.5-14.0); SEGMENTED NEUTROPHILS % (AUTO) 61.3 % (42-78); TOTAL CELLS COUNTED % (AUTO) 100 %
[2019-08-19 18:10] LABS: ALBUMIN 3.8 g/dL (3.5-5.0); ALKALINE PHOSPHATASE 90 U/L (38-126); ANION GAP 5 (5-19); ASPARTATE AMINO TRANSFERASE 42 U/L (14-36); BILIRUBIN,DIRECT 0.2 mg/dL (0.0-0.4); BILIRUBIN,TOTAL 0.3 mg/dL (0.2-1.3); BLOOD UREA NITROGEN 14 mg/dL (7-20); CALCIUM 9.9 mg/dL (8.4-10.2); CARBON DIOXIDE 29 mmol/L (22-30); CHLORIDE 104 mmol/L (98-107); CREATINE KINASE 60 U/L (30-135); GLUCOSE 135 mg/dL (75-110); POTASSIUM 4.2 mmol/L (3.6-5.0)
--- NOTE | 2019-08-19 18:10 | ER Document Report ---
ED General - General Chief Complaint: Near Syncope Stated Complaint: POSSIBLE SYNCOPE Time Seen by Provider: 08/19/19 16:35 Primary Care Provider: DEBBY CALVERT MD [Primary Care Provider] - Follow up as needed TRAVEL OUTSIDE OF THE [place] IN LAST 30 DAYS: Yes - HPI Notes: Patient is a 59-year-old female who presents to the emergency department for evaluation after a syncopal episode patient she went to the bathroom to have a bowel movement. She states she started getting significant cramping down in her lower abdomen. After that she started having a heat sensation more left upper, got sweaty, and then passed out. She states there is a hole in the wall, she is unsure as to whether or not this was with her head or with her elbow. The patient denies any pain at this time. She has no additional complaints or concerns. She has had no recent medication changes. - Related Data Allergies/Adverse Reactions: codeine [Codeine] Allergy (Intermediate, Verified 08/19/19 17:27) dizzy ampicillin [Ampicillin] Allergy (Unknown, Verified 08/19/19 17:27) rash morphine [Morphine] Allergy (Unknown, Verified 08/19/19 17:27) Hives Home Medications: List reviewed with patient, please see chart Past Medical History - General Information source: Patient - Okay 19 exam time - Social History Smoking Status: Never Smoker Chew tobacco use (# tins/day): No Frequency of alcohol use: None Drug Abuse: None Family History: Arthritis, CAD, CVA, DM, Hyperlipidemia, Hypertension, Malignancy Patient has suicidal ideation: No Patient has homicidal ideation: No - Past Medical History Cardiac Medical History: Reports: Hx Hypercholesterolemia Denies: Hx Coronary Artery Disease, Hx Heart Attack, Hx Hypertension Pulmonary Medical History: Reports: Hx Asthma - rare inhaler, Hx Bronchitis - yearly Denies: Hx COPD, Hx Pneumonia Neurological Medical History: Reports: Hx Migraine. Denies: Hx Cerebrovascular Accident, Hx Seizures Endocrine Medical History: Denies: Hx Diabetes Mellitus Type 1, Hx Diabetes Mellitus Type 2 Renal/ Medical History: Denies: Hx Peritoneal Dialysis GI Medical History: Reports: Hx Diverticulitis Musculoskeletal Medical History: Denies Hx Arthritis, Reports Hx Musculoskeletal Deformity, Reports Hx Musculoskeletal Trauma Traumatic Medical History: Reports: Hx Fractures Past Surgical History: Reports: Hx Abdominal Surgery - colon resection, Hx Adenoidectomy, Hx Hysterectomy, Hx Orthopedic Surgery - back surgery hand surgery, Hx Tonsillectomy, Hx Tubal Ligation - Immunizations Hx Diphtheria, Pertussis, Tetanus Vaccination: Yes Hx Pneumococcal Vaccination: 01/21/15 Review of Systems - Review of Systems Cardiovascular: See HPI Gastrointestinal: See HPI -: Yes All other systems reviewed and negative - Rhonchi Physical Exam - Vital signs Vitals: Temp Pulse Resp BP Pulse Ox 98.9 F 99 16 143/74 H 93 08/19/19 16:33 08/19/19 16:33 08/19/19 16:33 08/19/19 16:33 08/19/19 16:33 - Notes Notes: Vital signs reviewed, please refer to chart. Head is normocephalic, atraumatic. Pupils equal round, reactive to light. Neck is supple without meningismus. Heart is regular rate and rhythm. Lungs are clear to auscultation bilaterally. Abdomen is soft, nontender, normoactive bowel sounds throughout. Extremities without cyanosis, clubbing. Posterior calves are nontender. Peripheral pulses are equal. Skin is warm and dry. Patient is awake, alert, oriented x3. Cranial nerves II - XII are grossly intact without focal neurological deficits. Strength is plus 5 out of 5 bilateral upper and lower extremities. Sensation is intact. Reflexes symmetrical. Intact [id number], rapid alternating movements, [id number]. Course - Re-evaluation Re-evalutation: 08/19/19 19:26 Patient presents to the emergency department for evaluation. Her findings are most consistent with vasovagal syncope. She has a normal neurological exam. Laboratory investigations are unremarkable. She is not orthostatic. Patient is feeling stable and has no complaints at this time. I will send her home with close follow-up. She is to return to the ER with worsening or new concerning symptoms of any sort. - Vital Signs Vital signs: Temp Pulse Resp BP Pulse Ox 98.9 F 74 15 132/77 H 97 08/19/19 18:19 08/19/19 18:26 08/19/19 18:19 08/19/19 18:26 08/19/19 18:19 - Laboratory Result Diagrams: 08/19/19 17:20 08/19/19 17:20 Laboratory results interpreted by me: 03/29/20 03/29/20 03/29/20 17:20 17:20 18:15 RBC 3.45 L Hgb 9.5 L Hct 28.1 L RDW 15.7 H Glucose 135 H AST 42 H Ur Leukocyte Esterase TRACE H - Diagnostic Test Radiology reviewed: Reports reviewed - EKG Interpretation by Me Additional EKG results interpreted by me: 08/19/19 19:26 Sinus mechanism with a rate of 95 bpm. Normal axis and intervals, no acute ST changes concerning for ischemia or infarction. Discharge - Discharge Clinical Impression: Vasovagal syncope Condition: Stable Disposition: HOME, SELF-CARE Instructions: Syncopal Episode ([facility]) Additional Instructions: Your findings today are most consistent with vasovagal syncope. Your blood pressure was stable, your labs were unremarkable, and your EKG was normal. Please follow-up with your primary care provider next week. If you develop worsening or new concerning symptoms of any sort, return immediately to the emergency department for evaluation. Referrals: DEBBY CALVERT MD [Primary Care Provider] - Follow up as needed
[2019-08-19 18:21] LABS: CREATINE KINASE MB 0.44 ng/mL (<4.55)
[2019-08-19 18:22] LABS: TROPONIN I < 0.012 ng/mL
[2019-08-19 18:43] LABS: APPEARANCE,URINE SLIGHTLY-CLOUDY; BILIRUBIN,URINE NEGATIVE (NEGATIVE); COLOR,URINE YELLOW; GLUCOSE, URINE NEGATIVE (NEGATIVE); KETONES,URINE NEGATIVE (NEGATIVE); LEUKOCYTE ESTERASE,URINE TRACE (NEGATIVE); NITRITE,URINE NEGATIVE (NEGATIVE); PROTEIN,URINE NEGATIVE (NEGATIVE); URINE SPECIFIC GRAVITY 1.012; UROBILINOGEN,URINE NEGATIVE mg/dL (<2.0)
--- NOTE | 2019-08-19 18:50 | EKG REPORT ---
SEVERITY:- NORMAL ECG - SINUS RHYTHM : Confirmed by: Bony Rincon MD 19-Aug-2019 18:49:55
[2019-08-19 19:54] VITALS: BP 126/62
== END 2019-08-19 19:54 | disposition home or self-care (01) ==
LOC: ER 16:29
DX: R55 Syncope and collapse (principal); J45.909 Unspecified asthma, uncomplicated; Z88.6 Allergy status to analgesic agent; Z88.5 Allergy status to narcotic agent; Z88.0 Allergy status to penicillin
CPT/HCPCS: 36415; 80053; 81001; 82550; 82553; 84484; 85025; 93005; 93010; 99284